=== PATIENT | female | born 2000 | race Caucasian/White ===

== ENCOUNTER 2020-01-21 18:48 | Emergency (ER) | payer OTHER ==
[~2020-01-21] VITALS: Ht 160 cm; Wt 51.3 kg
[~2020-01-21 18:48] MED LIST: NOHOMEMEDICATIONS
[2020-01-21] MEDS ORDERED: TRAMADOL 50 MG50 MG PO (19:47)
[2020-01-21] MEDS ORDERED: FLEXERIL PO (19:47)
[2020-01-21 20:09] VITALS: BP 131/81
== END 2020-01-21 20:10 | disposition home or self-care (01) ==
LOC: M.ERS 18:48
DX: S46.811A Strain of other muscles, fascia and tendons at shoulder and upper arm level, right arm, initial encounter (principal); X50.1XXA Overexertion from prolonged static or awkward postures, initial encounter; Y93.89 Activity, other specified; Y92.89 Other specified places as the place of occurrence of the external cause; Y99.8 Other external cause status